=== PATIENT | male | born 1965 | race Caucasian/White ===

== ENCOUNTER 2021-07-26 09:47 | Emergency (ER) | payer SELFPAY ==
[2021-07-26] MEDS ORDERED: CYCLOBENZAPRINE10 MG PO (13:13)
[2021-07-26] MEDS ORDERED: IBUPROFEN600 MG PO (13:13)
== END 2021-07-26 13:27 | disposition home or self-care (01) ==
LOC: ER1 09:47
DX: M54.50 Low back pain, unspecified (principal); G89.29 Other chronic pain; Z88.5 Allergy status to narcotic agent; Z88.0 Allergy status to penicillin; Z88.6 Allergy status to analgesic agent
CPT/HCPCS: 72131; 96372; 99283; J1885; J2270

== ENCOUNTER → 2021-10-10 | Outpatient (CLI) | payer OTHER ==
[~2021-10-10] MED LIST: CYCLOBENZAPRINE10 MG PO; IBUPROFEN600 MG PO
== END ==
LOC: KOH-I 15:21
DX: F17.210 Nicotine dependence, cigarettes, uncomplicated (principal)
CPT/HCPCS: 71271

== ENCOUNTER → 2021-10-31 | Outpatient (CLI) | payer OTHER | LOC: EMI 14:59 | DX: M51.16 Intervertebral disc disorders with radiculopathy, lumbar region (principal); M51.17 Intervertebral disc disorders with radiculopathy, lumbosacral region | CPT/HCPCS: 72148 ==